=== PATIENT | female | born 1960 | race American Indian/Alaskan Native ===

== ENCOUNTER 2017-07-31 15:46 | Emergency (ER) | payer BC, OTHER ==
[2017-07-31] MEDS ORDERED: FIORICET PO ONE (20:47)
--- NOTE | 2017-07-31 20:55 | Emergency Department Report ---
HPI - HPI HPI: Patient is a 57-year-old female who was at her primary care physician office earlier today when her elevated blood pressure and was told to go to the ER for evaluation. Palpation is uses a complaining of intermittent, throbbing, aching , 4 out of 10 intensity for the past 2 days. Patient states she used to take some medicine for blood pressure years ago but has not been on the due to her maintaining a low blood pressure. She denies chest pain, shortness of breath, dizziness, blurred vision or any other problems. <BETO DOÍMNGUEZ - Last Filed: 07/31/17 20:50> <DENG UMANZOR - Last Filed: 07/31/17 21:25> - General Chief Complaint: Headache Time Seen by Provider: 07/31/17 20:44 ED Past Medical Hx - Past Medical History Hx Hypertension: Yes Hx Heart Attack/AMI: Yes (2001) Additional medical history: irreg heartbeat, heart murmur. - Surgical History Hx Appendectomy: Yes Additional Surgical History: RIGHT ROTATOR CUFF REPAIR. tubal ligation. RIGHT FOOT SURGERY - Social History Smoking Status: Never Smoker Substance Use Type: Alcohol <BETO DOMÍNGUEZ - Last Filed: 07/31/17 20:50> <DENG UMANZOR - Last Filed: 07/31/17 21:25> - Medications Home Medications: Home Medications Medication Instructions Recorded Confirmed Last Taken Type Acetaminophen/Codeine [Tylenol #3] 1 tab PO Q6H PRN #15 tab 08/19/14 Unknown Rx Cephalexin [Keflex] 500 mg PO Q8HR #21 cap 07/01/15 Unknown Rx Clindamycin [Clindamycin CAP] 300 mg PO Q8H #20 cap 09/05/15 Unknown Rx traMADol [Ultram 50 MG tab] 50 mg PO Q6HR PRN #15 tablet 09/05/[address] [Voltaren Dr] 75 mg PO BID #21 tablet 07/31/17 Unknown Rx Tizanidine HCl [Zanaflex] 2 mg PO BID #20 capsule 07/31/17 Unknown Rx amLODIPine [Norvasc] 5 mg PO DAILY #40 tab 07/31/17 Unknown Rx ED Review of Systems ROS: Stated complaint: HYPERTENSION Other details as noted in HPI Constitutional: denies: chills, fever Eyes: denies: eye pain, eye discharge, vision change ENT: denies: ear pain, throat pain Respiratory: denies: cough, shortness of breath, wheezing Cardiovascular: denies: chest pain, palpitations Endocrine: no symptoms reported Gastrointestinal: denies: abdominal pain, nausea, diarrhea Genitourinary: denies: urgency, dysuria, discharge Musculoskeletal: denies: back pain, joint swelling, arthralgia Skin: denies: rash, lesions Neurological: headache. denies: weakness, numbness, paresthesias, confusion Psychiatric: denies: anxiety, depression Hematological/Lymphatic: denies: easy bleeding, easy bruising <BETO DOMÍNGUEZ - Last Filed: 07/31/17 20:50> ROS: Stated complaint: HYPERTENSION Other details as noted in HPI <ERNADENG - Last Filed: 07/31/17 21:25> Physical Exam - Physical Exam Vital Signs: Vital Signs 07/31/17 07/31/17 15:55 17:36 Temperature 98.4 F Pulse Rate 86 70 Respiratory 16 16 Rate Blood Pressure 157/95 Blood Pressure 139/86 [Left] O2 Sat by Pulse 95 Oximetry Physical Exam: GENERAL: Alert and oriented x3, no apparent distress, Normal Gait, atraumatic. HEAD: Head is normocephalic and a-traumatic. EYES: Extra ocular muscles are intact. Pupils are equal, round, and reactive to light and accommodation. EARS: symetrical, atraumatic, non tender, ear canal clear and moderate cerumen, tympanic membrance non inflamed. gross auditory nml bilaterally. NOSE: Nose symetrical, Nontender,Nares appeared normal. MOUTH:Mouth is well hydrated and without lesions. Tonsils nonerythematous or swollen, Uvula midline, Tongue not elevated. Mucous membranes are moist. Posterior pharynx clear, no exudate or lesions. Patent airways. NECK: Supple. Non edematous, No carotid bruits. No lymphadenopathy or thyromegaly. No C-spine tenderness LUNGS: Symetrical with respiration, No wheezing, no rales or crackles, CTAB. HEART: S1, S2 present, regular rate and rhythm without murmur, no rubs, no gallops. Non tender to palpation NEURO: No neurological deficit, no loss of sensation, [place] Coma Scale 15 out of 15, SKIN: Warm and dry, No lesions, No ulceration or induration present. <BETO DOMÍNGUEZ - Last Filed: 07/31/17 20:50> - Physical Exam Vital Signs: Vital Signs 07/31/17 07/31/17 07/31/17 15:55 17:36 20:58 Temperature 98.4 F Pulse Rate 86 70 Respiratory 16 16 16 Rate Blood Pressure 157/95 Blood Pressure 139/86 [Left] O2 Sat by Pulse 95 Oximetry 07/31/17 21:11 Temperature 98.5 F Pulse Rate 75 Respiratory 16 Rate Blood Pressure Blood Pressure 134/83 [Left] O2 Sat by Pulse 100 Oximetry <DENG UMANZOR - Last Filed: 07/31/17 21:25> ED Course Vital Signs 07/31/17 07/31/17 15:55 17:36 Temperature 98.4 F Pulse Rate 86 70 Respiratory 16 16 Rate Blood Pressure 157/95 Blood Pressure 139/86 [Left] O2 Sat by Pulse 95 Oximetry <BETO DOMÍNGUEZ - Last Filed: 07/31/17 20:50> Vital Signs 07/31/17 07/31/17 07/31/17 15:55 17:36 20:58 Temperature 98.4 F Pulse Rate 86 70 Respiratory 16 16 16 Rate Blood Pressure 157/95 Blood Pressure 139/86 [Left] O2 Sat by Pulse 95 Oximetry 07/31/17 21:11 Temperature 98.5 F Pulse Rate 75 Respiratory 16 Rate Blood Pressure Blood Pressure 134/83 [Left] O2 Sat by Pulse 100 Oximetry <DENG UMANZOR - Last Filed: 07/31/17 21:25> ED Medical Decision Making - EKG Data EKG shows normal: sinus rhythm - EKG Data Interpretation: normal EKG - Medical Decision Making 57-year-old female presents with elevated, uncontrolled blood pressure. ED course: Patient received Versed in the ED for headache. EKG was obtained. EKG which shows no a abnormality within normal limits. I discussed this with the patient. Discussed patient to resume taking her blood pressure medication. Patient was not given medication ED due normalized blood pressure here in the ED. I discussed the patient to monitor blood pressure daily and take blood pressure medication as needed I'm also discussed follow-up with the primary care physician to manage and treat her hypertension if true. Patient had no neurological deficit. Vital signs are normal she is in no acute or respiratory distress. Patient also mentioned she rates her refill of medication for muscle spasms. <BETO DOMÍNGUEZ - Last Filed: 07/31/17 20:50> Critical care attestation.: If time is entered above; I have spent that time in minutes in the direct care of this critically ill patient, excluding procedure time. <BETO DOMÍNGUEZ - Last Filed: 07/31/17 20:50> Critical care attestation.: If time is entered above; I have spent that time in minutes in the direct care of this critically ill patient, excluding procedure time. <DENG UMANZOR - Last Filed: 07/31/17 21:25> ED Disposition Is pt being admited?: No Does the pt Need Aspirin: No Time of Disposition: 21:01 <BETO DOMÍNGUEZ - Last Filed: 07/31/17 20:50> <DENG UMANZOR - Last Filed: 07/31/17 21:25> Disposition: - TO HOME OR SELFCARE Condition: Stable Instructions: Low Sodium Diet (ED), Hypertension (ED) Additional Instructions: Make sure to follow up with the primary care physician as discussed. Take all your medications as you've been prescribed. If you have any worsening symptoms or develop new symptoms please return to ED immediately. Prescriptions: amLODIPine [Norvasc] 5 mg PO DAILY #[address] [Voltaren Dr] 75 mg PO BID #21 tablet Tizanidine HCl [Zanaflex] 2 mg PO BID #20 capsule Referrals: PRIMARY CARE, [Primary Care Provider] - 3-5 Days [facility] [Provider Group] - 3-5 Days [facility] [Provider Group] - 3-5 Days [facility] [Provider Group] - 3-5 Days [facility] [Provider Group] - 3-5 Days Forms: Work/School Release Form(ED)
[2017-07-31 21:12] VITALS: BP 134/83
== END 2017-07-31 21:12 | disposition home or self-care (01) ==
LOC: ED 15:46
DX: I10 Essential (primary) hypertension (principal); I25.2 Old myocardial infarction; Z90.49 Acquired absence of other specified parts of digestive tract; Z98.51 Tubal ligation status; Z88.6 Allergy status to analgesic agent
CPT/HCPCS: 93005; 93010; 99283

== ENCOUNTER 2018-10-26 04:16 | Emergency (ER) | payer BC ==
--- NOTE | 2018-10-26 05:43 | Emergency Department Report ---
- General Chief complaint: Animal Bite Stated complaint: POSS BUG BITE ON R SHOULDER Time Seen by Provider: 10/26/18 05:33 Source: patient Mode of arrival: Ambulatory Limitations: No Limitations - History of Present Illness Initial comments: [age]-year-old -[place] female discharged from emergency department complaining of a wound to the right side of her neck which she states was sustained at work. The area is red, warm, tender to the touch with some swelling noted. She reports no Coty, chills, sweats. No chest pain or palpitations. No nausea, vomiting, no odynophagia or dysphagia. She reports no foreign bodies to her knowledge. She did not see what has bitten her, but the area is dull and throbbing, worse with palpation. She has not yet tried any palliative treatments. MD complaint: insect bite/sting -: Sudden Tetanus Up to Date: no Location: generalized Severity: mild Quality: aching, dull Consistency: constant Improves with: none Worsens with: none Context: none Associated symptoms: denies other symptoms - Related Data Previous Rx's Medication Instructions Recorded Last Taken Type amLODIPine [Norvasc] 5 mg PO DAILY #40 tab 07/31/17 Unknown Rx diphenhydrAMINE [Benadryl CAP] 25 mg PO Q6HR PRN #10 capsule 01/10/18 Unknown Rx Mupirocin [Bactroban 2%] 15 applic TP TID #15 gm 10/26/18 Unknown Rx Sulfamethoxazole/Trimethoprim 1 each PO BID #20 tablet 10/26/18 Unknown Rx [Bactrim DS TAB] cephALEXin [Keflex] 500 mg PO Q6HR #40 capsule 10/26/18 Unknown Rx Allergies Allergy/AdvReac Type Severity Reaction Status Date / Time ibuprofen Allergy Swelling Verified 07/01/15 08:10 Abscess Boil HPI - HPI Chief Complaint: Animal Bite Stated Complaint: POSS BUG BITE ON R SHOULDER Time Seen by Provider: 10/26/18 05:33 Home Medications: Previous Rx's Medication Instructions Recorded Last Taken Type amLODIPine [Norvasc] 5 mg PO DAILY #40 tab 07/31/17 Unknown Rx diphenhydrAMINE [Benadryl CAP] 25 mg PO Q6HR PRN #10 capsule 01/10/18 Unknown Rx Mupirocin [Bactroban 2%] 15 applic TP TID #15 gm 10/26/18 Unknown Rx Sulfamethoxazole/Trimethoprim 1 each PO BID #20 tablet 10/26/18 Unknown Rx [Bactrim DS TAB] cephALEXin [Keflex] 500 mg PO Q6HR #40 capsule 10/26/18 Unknown Rx Allergies/Adverse Reactions: Allergies Allergy/AdvReac Type Severity Reaction Status Date / Time ibuprofen Allergy Swelling Verified 07/01/15 08:10 ED Review of Systems ROS: Stated complaint: POSS BUG BITE ON R SHOULDER Other details as noted in HPI Comment: All other systems reviewed and negative ED Past Medical Hx - Past Medical History Previous Medical History?: Yes Hx Hypertension: Yes Hx Heart Attack/AMI: Yes (2001) Additional medical history: irreg heartbeat, heart murmur. - Surgical History Past Surgical History?: Yes Hx Appendectomy: Yes Additional Surgical History: RIGHT ROTATOR CUFF REPAIR. tubal ligation. RIGHT FOOT SURGERY - Social History Smoking Status: Former Smoker - Medications Home Medications: Home Medications Medication Instructions Recorded Confirmed Last Taken Type amLODIPine [Norvasc] 5 mg PO DAILY #40 tab 07/31/17 Unknown Rx diphenhydrAMINE [Benadryl CAP] 25 mg PO Q6HR PRN #10 capsule 01/10/18 Unknown Rx Mupirocin [Bactroban 2%] 15 applic TP TID #15 gm 10/26/18 Unknown Rx Sulfamethoxazole/Trimethoprim 1 each PO BID #20 tablet 10/26/18 Unknown Rx [Bactrim DS TAB] cephALEXin [Keflex] 500 mg PO Q6HR #40 capsule 10/26/18 Unknown Rx ED Physical Exam - General Limitations: No Limitations General appearance: alert, in no apparent distress - Head Head exam: Present: atraumatic, normocephalic - Eye Eye exam: Present: normal appearance - ENT ENT exam: Present: mucous membranes moist - Neck Neck exam: Present: normal inspection - Respiratory Respiratory exam: Present: normal lung sounds bilaterally. Absent: respiratory distress - Cardiovascular Cardiovascular Exam: Present: regular rate, normal rhythm. Absent: systolic murmur, diastolic murmur, rubs, gallop - GI/Abdominal GI/Abdominal exam: Present: soft, normal bowel sounds - Extremities Exam Extremities exam: Present: normal inspection - Back Exam Back exam: Present: normal inspection - Neurological Exam Neurological exam: Present: alert, oriented X3, CN II-XII intact, normal gait - Psychiatric Psychiatric exam: Present: normal affect, normal mood - Skin Skin exam: Present: warm, dry, intact, normal color, erythema, other (red swelling to the right trapezial region with 2 puncture wound to the liver, possible insect bite area is warm. There is no lymphangitis. No lymphadenopathy.). Absent: rash, abrasion, ecchymosis ED Course Vital Signs 10/26/18 04:30 Temperature 98.1 F Pulse Rate 72 Respiratory 20 Rate Blood Pressure 130/74 O2 Sat by Pulse 98 Oximetry Critical care attestation.: If time is entered above; I have spent that time in minutes in the direct care of this critically ill patient, excluding procedure time. ED Disposition Clinical Impression: Cellulitis Disposition: DC-01 TO HOME OR SELFCARE Is pt being admited?: No Does the pt Need Aspirin: No Condition: Stable Instructions: Cellulitis (ED) Referrals: [facility] [Provider Group] - 3-5 Days
[2018-10-26 06:33] VITALS: BP 130/86
== END 2018-10-26 06:33 | disposition home or self-care (01) ==
LOC: ED 04:16
DX: L03.221 Cellulitis of neck (principal); I10 Essential (primary) hypertension; I25.2 Old myocardial infarction; Z90.49 Acquired absence of other specified parts of digestive tract; Z98.51 Tubal ligation status; Z87.891 Personal history of nicotine dependence; Z98.890 Other specified postprocedural states; Z79.899 Other long term (current) drug therapy; Z88.6 Allergy status to analgesic agent
CPT/HCPCS: 99282

== ENCOUNTER 2018-11-03 12:17 | Emergency (ER) | payer BC ==
[2018-11-03] MEDS ORDERED: ANCEF IM ONE (13:21)
[2018-11-03] MEDS ORDERED: DEPO-Medrol IM ONE (13:21)
--- NOTE | 2018-11-03 13:23 | Emergency Department Report ---
ED Rash HPI - HPI Chief Complaint: Skin Rash Stated Complaint: INSECT BITE/FEVER Time Seen by Provider: 11/03/18 13:21 Location: Upper Extremities Suspected Cause: Insect Rash Symptoms: Yes Itching, No Facial Swelling, No Tongue/Oral Swelling, No Breathing Difficulties, No Choking Sensation, No Wheezing/Dyspnea, No Peeling, No Blistering, No Fever, No Lightheaded, No Malaise, No Myalgias Severity: mild Other History: VS normal- RN to chart. She is a 58-year-old female comes to the ER complaining of an insect bite to her left wrist and right elbow. She states that she is having a reaction to them. She was seen recently in the ER for the same. She is on Keflex. She has 4 more pills left. Her prior insect bite is healing and non-concerning. However, her elbow and wrist is red with swelling consistent with an allergic localized reaction. ABCs intact. No wheezing. ED Review of Systems ROS: Stated complaint: INSECT BITE/FEVER Other details as noted in HPI Comment: All other systems reviewed and negative ED Past Medical Hx - Past Medical History Hx Hypertension: Yes Hx Heart Attack/AMI: Yes (2001) Additional medical history: irreg heartbeat, heart murmur. - Surgical History Hx Appendectomy: Yes Additional Surgical History: RIGHT ROTATOR CUFF REPAIR. tubal ligation. RIGHT FOOT SURGERY - Family History Family history: no significant - Social History Smoking Status: Former Smoker - Medications Home Medications: Home Medications Medication Instructions Recorded Confirmed Last Taken Type cephALEXin [Keflex] 500 mg PO Q6HR #40 capsule 11/03/18 Unknown Rx predniSONE [Deltasone] 20 mg PO DAILY #5 tablet 11/03/18 Unknown Rx Rash Exam - Exam General: Vital signs noted. No distress. Alert and acting appropriately. HEENT: No Periorbital Edema, No Conjuctival Injection Lungs: Yes Good Air Exchange, No Wheezes Heart: Yes Regular Skin: Yes Tenderness, Yes Erythema, Yes Edema, No Urticarial Rash, No Maculopapular Rash, No Morbilliform rash, No Bulla(e), No Excoriations, No Weeping, No Encrustations Other: Positive: Abdomen Normal, Neurologic Normal, Musculoskeletal Normal ED Medical Decision Making - Medical Decision Making here recently for insect bites recently and given keflex which helped her first bite Then yesterday at work she was bit on l wrist and r elbow today local reaction at both sites she states she thinks these are spiders no necrosis compartments soft normal pulses and cap refill pt requesting shot medicated in ER dc home with dc plan of care and follow up - Differential Diagnosis insect bites Critical care attestation.: If time is entered above; I have spent that time in minutes in the direct care of this critically ill patient, excluding procedure time. ED Disposition Clinical Impression: Insect bite, Cellulitis Disposition: DC-01 TO HOME OR SELFCARE Is pt being admited?: No Does the pt Need Aspirin: No Condition: Stable Instructions: Cellulitis (ED), Insect Bite or Sting (ED) Prescriptions: predniSONE [Deltasone] 20 mg PO DAILY #5 tablet cephALEXin [Keflex] 500 mg PO Q6HR #40 capsule Referrals: CARRIE PETERSON MD [Staff Physician] - 3-5 Days Time of Disposition: 13:22
== END 2018-11-03 13:52 | disposition home or self-care (01) ==
LOC: ED 12:17
DX: L03.114 Cellulitis of left upper limb (principal); L03.113 Cellulitis of right upper limb; I10 Essential (primary) hypertension; I25.2 Old myocardial infarction; Z90.49 Acquired absence of other specified parts of digestive tract; Z98.51 Tubal ligation status; Z87.891 Personal history of nicotine dependence; Z98.890 Other specified postprocedural states; Z88.6 Allergy status to analgesic agent; W57.XXXA Bitten or stung by nonvenomous insect and other nonvenomous arthropods, initial encounter; Y93.89 Activity, other specified; Y92.89 Other specified places as the place of occurrence of the external cause; Y99.8 Other external cause status
CPT/HCPCS: 96372; 99281; J0690; J1040

== ENCOUNTER 2019-01-14 15:58 | Emergency (ER) | payer OTHER, BC ==
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
[2019-01-14 21:36] VITALS: BP 161/58
== END 2019-01-14 21:36 | disposition home or self-care (01) ==
LOC: ED 15:58
DX: S39.012A Strain of muscle, fascia and tendon of lower back, initial encounter (principal); I10 Essential (primary) hypertension; I25.2 Old myocardial infarction; Z90.89 Acquired absence of other organs; Z98.51 Tubal ligation status; Z98.890 Other specified postprocedural states; Z79.899 Other long term (current) drug therapy; Z88.6 Allergy status to analgesic agent; V49.49XA Driver injured in collision with other motor vehicles in traffic accident, initial encounter; Y93.89 Activity, other specified; Y92.481 Parking lot as the place of occurrence of the external cause; Y99.8 Other external cause status
CPT/HCPCS: 72100

== ENCOUNTER 2021-10-19 22:05 | Emergency (ER) | payer SELFPAY | END 2021-10-19 23:00 | disposition left against medical advice (07) | LOC: ED 22:05 | DX: Z00.00 Encounter for general adult medical examination without abnormal findings (principal); Z53.21 Procedure and treatment not carried out due to patient leaving prior to being seen by health care provider ==

== ENCOUNTER 2021-10-20 07:22 | Emergency (ER) | payer SELFPAY ==
[2021-10-20 08:58] VITALS: BP 151/72
[2021-10-20] MEDS ORDERED: dexAMETHasone 20 MG/5 ML VIAL IM ONE (10:38)
--- NOTE | 2021-10-20 10:46 | Emergency Department Report ---
ED Animal Bite HPI - General Chief Complaint: Animal Bite Stated Complaint: LEFT EYE SWOLLEN/BUG BITE Source: patient Mode of arrival: Ambulatory Limitations: No Limitations - History of Present Illness Initial Comments: 61-year-old female presents to the ED with erythema noted around her right after she stated she was stung by a bee or wasp x2 days ago. Patient states that she has been taking Benadryl which has decreased some of the swelling. She still has some swelling noted. Patient states she was able to move the stingray. Patient is unsure if she if this was the etiology of the swelling. Patient denies any vision change headache or fever chills. Patient denies any pain at present time. Patient is alert and oriented x3. No acute distress noted. No ill appears noted. MD Complaint: animal bite Onset/Timin -: days(s) Location: face Animal: other - Related Data Patient Tetanus UTD: Yes Previous Rx's Medication Instructions Recorded Last Taken Type cephALEXin [Keflex] 500 mg PO Q6HR #40 capsule 11/03/18 Unknown Rx predniSONE [Deltasone] 20 mg PO DAILY #5 tablet 11/03/18 Unknown Rx Cyclobenzaprine [Flexeril] 10 mg PO QHS PRN #10 tablet 01/14/19 Unknown Rx Diclofenac Sodium 50 mg PO BID PRN #14 tablet.dr 01/14/19 Unknown Rx Cetirizine HCl [Zyrtec 10mg tab] 10 mg PO ONCE 10 Days #30 tab 10/20/21 Unknown Rx cephALEXin [Keflex] 500 mg PO Q12HR 5 Days #10 cap 10/20/21 Unknown Rx predniSONE [Deltasone] 40 mg PO QDAY 5 Days #5 tab 10/20/21 Unknown Rx Allergies Allergy/AdvReac Type Severity Reaction Status Date / Time ibuprofen Allergy Swelling Verified 07/01/15 08:10 ED Review of Systems ROS: Stated complaint: LEFT EYE SWOLLEN/BUG BITE Other details as noted in HPI Constitutional: denies: chills, fever Eyes: denies: eye pain, eye discharge, vision change ENT: denies: ear pain, throat pain Respiratory: denies: cough, shortness of breath, wheezing Cardiovascular: denies: chest pain, palpitations Endocrine: no symptoms reported Gastrointestinal: denies: abdominal pain, nausea, diarrhea Genitourinary: denies: urgency, dysuria, discharge Musculoskeletal: denies: back pain, joint swelling, arthralgia Skin: denies: rash, lesions Neurological: denies: headache, weakness, paresthesias Psychiatric: denies: anxiety, depression Hematological/Lymphatic: denies: easy bleeding, easy bruising ED Past Medical Hx - Past Medical History Hx Hypertension: Yes Hx Heart Attack/AMI: Yes (2001) Additional medical history: Irregular heart rhythm - Surgical History Hx Appendectomy: Yes Additional Surgical History: RIGHT ROTATOR CUFF REPAIR. tubal ligation. RIGHT FOOT SURGERY - Social History Smoking Status: Never Smoker Substance Use Type: None - Medications Home Medications: Home Medications Medication Instructions Recorded Confirmed Last Taken Type cephALEXin [Keflex] 500 mg PO Q6HR #40 capsule 11/03/18 Unknown Rx predniSONE [Deltasone] 20 mg PO DAILY #5 tablet 11/03/18 Unknown Rx Cyclobenzaprine [Flexeril] 10 mg PO QHS PRN #10 tablet 01/14/19 Unknown Rx Diclofenac Sodium 50 mg PO BID PRN #14 tablet.dr 01/14/19 Unknown Rx Cetirizine HCl [Zyrtec 10mg tab] 10 mg PO ONCE 10 Days #30 tab 10/20/21 Unknown Rx cephALEXin [Keflex] 500 mg PO Q12HR 5 Days #10 cap 10/20/21 Unknown Rx predniSONE [Deltasone] 40 mg PO QDAY 5 Days #5 tab 10/20/21 Unknown Rx ED Physical Exam - General Limitations: No Limitations General appearance: alert, in no apparent distress - Head Head exam: Present: atraumatic, normocephalic - Eye Eye exam: Present: normal appearance Pupils: Present: normal accommodation - Expanded Eye Exam Expanded Eyelids: Swelling: Right Pupils: Regular, Round: Right, Reactive: Right Sclera/Conjunctival: Normal Inspection: Right - ENT ENT exam: Present: mucous membranes moist - Neck Neck exam: Present: normal inspection - Respiratory Respiratory exam: Present: normal lung sounds bilaterally. Absent: respiratory distress - Cardiovascular Cardiovascular Exam: Present: regular rate, normal rhythm. Absent: systolic murmur, diastolic murmur, rubs, gallop - GI/Abdominal GI/Abdominal exam: Present: soft, normal bowel sounds - Extremities Exam Extremities exam: Present: normal inspection - Back Exam Back exam: Present: normal inspection - Neurological Exam Neurological exam: Present: alert, oriented X3 - Psychiatric Psychiatric exam: Present: normal affect, normal mood - Skin Skin exam: Present: warm, dry, intact, normal color. Absent: rash ED Course Vital Signs 10/20/21 10/20/21 10/20/21 07:35 08:56 08:58 Temperature 97.3 F L 98.6 F Pulse Rate 70 63 Respiratory 18 19 Rate Blood Pressure 141/86 151/72 [Left] O2 Sat by Pulse 99 100 100 Oximetry Critical care attestation.: If time is entered above; I have spent that time in minutes in the direct care of this critically ill patient, excluding procedure time. ED Disposition Clinical Impression: Animal bite Bee sting reaction Qualifiers: Encounter type: initial encounter Injury intent: accidental or unintentional Qualified Code(s): T63.441A - Toxic effect of venom of bees, accidental (unintentional), initial encounter Disposition: 30 STILL A PATIENT Is pt being admited?: No Does the pt Need Aspirin: No Condition: Stable Instructions: Bee, Wasp, or Hornet Sting, Adult Additional Instructions: Take medication as prescribed Return to ED for any worsening symptom Prescriptions: predniSONE [Deltasone] 40 mg PO QDAY 5 Days #5 tab cephALEXin [Keflex] 500 mg PO Q12HR 5 Days #10 cap Cetirizine HCl [Zyrtec 10mg tab] 10 mg PO ONCE 10 Days #30 tab Referrals: [facility] [Provider Group] - 3-5 Days Forms: Work/School Release Form(ED) Time of Disposition: 10:51
== END 2021-10-20 11:54 | disposition still patient (30) ==
LOC: ED 07:22
DX: T14.8XXA Other injury of unspecified body region, initial encounter (principal); I10 Essential (primary) hypertension; I21.9 Acute myocardial infarction, unspecified; Z91.09 Other allergy status, other than to drugs and biological substances; W64.XXXA Exposure to other animate mechanical forces, initial encounter; Y93.89 Activity, other specified; Y92.89 Other specified places as the place of occurrence of the external cause; Y99.8 Other external cause status
CPT/HCPCS: 96372; 99282; J1100